=== PATIENT | female | born 1945 | race Caucasian/White ===

== ENCOUNTER → 2019-01-21 | Outpatient (CLI) | payer OTHER ==
[~2019-01-21] MED LIST: ASPI81EC PO; Adult Low Dose81 MG PO; CALCIUM PO; CHOL10002 PO; DIOVAN HCT PO; LETR2.5 PO; MEGA MULTI FOR1 EACH PO; MULVITMIND PO; NAPR220 PO; VALS80 PO; VITAMIN D PO; ZOLEDRONIC5 MG/100 M
== END | disposition home or self-care (01) ==
LOC: LAB 15:46 → LAB SHORT 15:46
DX: N39.0 Urinary tract infection, site not specified (principal)
CPT/HCPCS: 87077; 87086; 87186

== ENCOUNTER → 2019-08-21 | Outpatient (CLI) | payer OTHER ==
[2019-08-25 13:07] LABS: HPV 16 Negative (Negative); HPV 18 Negative (Negative); HPV OTHER HR TYPES Negative (Negative)
== END | disposition home or self-care (01) ==
LOC: LAB SHORT 13:45 → LAB 13:45
PROVIDERS: Obstetrics & Gynecology Gynecology
DX: Z91.89 Other specified personal risk factors, not elsewhere classified (principal)
CPT/HCPCS: 87624; G0123

== ENCOUNTER → 2020-09-06 | Outpatient (CLI) | payer OTHER | LOC: LAB SHORT 11:36 → PLD 11:36 | DX: D48.5 Neoplasm of uncertain behavior of skin (principal) | CPT/HCPCS: 88305 ==

== ENCOUNTER 2021-02-15 08:41 | Day surgery (SDC) | payer OTHER ==
[~2021-02-15] VITALS: Ht 160 cm; Wt 88.5 kg
[2021-02-15] MEDS ORDERED: MULTI-VITAMIN1 EAC2 (09:19)
--- NOTE | 2021-02-15 09:29 | NUR ---
02/15/21 0929 Codie Ny TOOK SUTAB FOR HER PREP.
== END 2021-02-15 10:45 | disposition home or self-care (01) ==
LOC: ORSCSDS 08:41
PROVIDERS: Internal Medicine Gastroenterology
PROC: 0DBK8ZX Excision of Ascending Colon, Via Natural or Artificial Opening Endoscopic, Diagnostic (ICD-10-PCS; principal; 2021-02-15 10:00)
DX: Z12.11 Encounter for screening for malignant neoplasm of colon (principal); Z86.010 Personal history of colon polyps; D12.2 Benign neoplasm of ascending colon; K57.30 Diverticulosis of large intestine without perforation or abscess without bleeding; Z87.891 Personal history of nicotine dependence; Z79.899 Other long term (current) drug therapy; Z85.3 Personal history of malignant neoplasm of breast
CPT/HCPCS: 88305; J2704; J7120

== ENCOUNTER → 2023-08-08 | Outpatient (CLI) | payer OTHER ==
[~2023-08-08] MED LIST changes: +MULTI-VITAMIN1 EAC2
== END | disposition home or self-care (01) ==
LOC: LAB SHORT 10:00 → LAB 10:00
DX: R30.0 Dysuria (principal)
CPT/HCPCS: 87077; 87086; 87186

== ENCOUNTER → 2023-09-20 | Outpatient (CLI) | payer OTHER | LOC: LAB SHORT 11:51 → LAB 11:51 | DX: N39.0 Urinary tract infection, site not specified (principal) | CPT/HCPCS: 87086 ==